=== PATIENT | female | born 1985 ===

== ENCOUNTER 2022-02-09 14:49 | Observation (INO) | payer SELFPAY ==
[~2022-02-09] VITALS: Wt 61.0 kg
--- NOTE | 2022-02-09 18:04 | NUR ---
PT ARRIVED TO UNIT AT APROX 1630 FROM [facility]. PT TX FOR LAP APPY TOMORROW W/DR MORALES. PT C/O RLQ PAIN, INCREASED W/PALPATION. NAUSEA EN ROUTE HERE MEDICATED WITH 25MG PHENERGAN TOTAL-TOLERATED WELL. PT IS ON CLEAR LIQUIDS TILL MIDNIGHT WITH PLAN FOR OR IN AM PER DR MORALES. WILL START IVF AND IV ABX PER ORDERS. MEDICATED WITH 50 FENTYNAL FOR 6/10 PAIN, PT REPORTS GOOD RELIEF 3/10 AT THIS TIME.
--- NOTE | 2022-02-10 04:23 | NUR ---
SHIFT SUMMARY PT RESTING WELL THIS NOC SHIFT. AAOX4. NPO SINCE MIDNIGHT. PAIN CONTROLLED WITH 50mcg FENTNAYL X2. NO NAUSEA/EMESIS. LR AT 150 ML/HR. INDEPENDENT IN ROOM. NO ACUTE CHANGES OVER NIGHT. AWAITING OR TODAY. PT CURRENTLY RESTING IN BED WITH CALL LIGHT IN REACH.
--- NOTE | 2022-02-10 07:26 | NUR ---
History, Chart, Medications and Allergies reviewed before start of procedure. Lungs clear T/O to Auscultation. Patient confirms NPO status and agrees with scheduled surgery. Pre-Op teaching done. Pt verbalizes understanding.
--- NOTE | 2022-02-10 07:42 | NUR ---
PT TO SURGERY AT 0700
--- NOTE | 2022-02-10 09:58 | NUR ---
PT ARRIVED TO UNIT FROM PACU TRANSFERRED PT FROM [facility] TO BED. DENIES N/V OR SOB. RATES PAIN 6/10 TO R SIDE ABD. TAKING CRACKERS AND WATER, ADMINISTERED NORCO PER ORDERS FOR PAIN. CALL LIGHT IN REACH. PT VOIDED. VSS. LAP INCISIONS TO ABD X3 CDI.
--- NOTE | 2022-02-10 11:52 | NUR ---
LATE ENTRY: PT MEDICATED FOR PAIN WITH 3 DOSES OF 25MCG OF IV FENTANYL PER ACP ORDER FOR A TOTAL OF 75MCG. 25MCG WASTED IN PYXIS WITH JENIFFER ARAMBULA RN. PT D/C BEFORE MEDICATION SCANNED. PLEASE SEE VS COMMENT SECTION FOR DOSES AND TIMES. PHARMACY CALLED BUT UNABLE TO ASSIST.
[2022-02-10] MEDS ORDERED: HYDR1TAB94 PO (17:07)
--- NOTE | 2022-02-10 18:00 | NUR ---
discharged PT TOLERATING REGULAR DIET. PAIN CONTROLLED W/PO PAIN MEDS AND ABDOMINAL BINDER FOR COMFORT. PT VOIDING AND MOVING INDEPENDENTLY IN ROOM. DC'D PER ORDERS. IV DC'D, CATHETER INTACT. REVIEWED DC INSTRUCTIONS W/PT; VERBALIZED UNDERSTANDING. PT LEFT UNIT IN WC W/POSSESSIONS AND DC PAPERWORK IN HAND, ACCOMPANIED BY SPOUSE.
== END 2022-02-10 17:50 | disposition home or self-care (01) ==
LOC: EDBD → SURS 14:49
PROVIDERS: ADMIT Surgery
DX: K35.80 Unspecified acute appendicitis (principal); J45.909 Unspecified asthma, uncomplicated; F17.200 Nicotine dependence, unspecified, uncomplicated
CPT/HCPCS: A9270; J0295; J1100; J1885; J2250; J2405; J2704; J2795; J3010; J7120